=== PATIENT | male | born 1985 | race American Indian/Alaskan Native ===

== ENCOUNTER 2018-12-16 14:44 | Emergency (ER) | payer BC ==
[2018-12-16 15:02] VITALS: BP 139/84
--- NOTE | 2018-12-16 15:04 | Emergency Department Report ---
ED ENT HPI - General Chief complaint: Dental/Oral Stated complaint: TOOTHACHE/HEADACHE/VOMITING Time Seen by Provider: 12/16/18 14:58 Source: patient Mode of arrival: Ambulatory Limitations: No Limitations - History of Present Illness Initial comments: The patient is a33 year-old male who presents to ED complaining of 1 pain in the right side of his mouth Patient states that the pain started 5 days ago and has increased in severity over the last 2-3 days. The pain is exacerbated by eating and opening of the mouth. Patient states the pain is alleviated initially with pain medication but comes back. Patient states that it radiates towards ear. Patient describes a as a throbbing, pressure-like sensation. Patient states otherwise well and has no other complaints. Patient has had no fevers and no chills. No chest pain, no shortness of breath. No abdominal pain. No shortness of breath or recent trauma to the face. MD complaint: tooth pain Severity: moderate Severity scale (0 -10): 6 Quality: burning, aching Consistency: constant Worsens with: eating Associated Symptoms: toothache. denies: fever, cough, gum swelling, pain with swallowing, sore throat, tinnitus - Related Data Previous Rx's Medication Instructions Recorded Last Taken Type Clindamycin [Clindamycin CAP] 300 mg PO Q8H #21 cap 12/16/18 Unknown Rx Ibuprofen [Motrin] 800 mg PO Q8HR #30 tablet 12/16/18 Unknown Rx Allergies Allergy/AdvReac Type Severity Reaction Status Date / Time No Known Allergies Allergy Verified 12/16/18 14:46 ED Dental HPI - General Chief complaint: Dental/Oral Stated complaint: TOOTHACHE/HEADACHE/VOMITING Time Seen by Provider: 12/16/18 14:58 Source: patient Mode of arrival: Ambulatory Limitations: No Limitations - Related Data Previous Rx's Medication Instructions Recorded Last Taken Type Clindamycin [Clindamycin CAP] 300 mg PO Q8H #21 cap 12/16/18 Unknown Rx Ibuprofen [Motrin] 800 mg PO Q8HR #30 tablet 12/16/18 Unknown Rx Allergies Allergy/AdvReac Type Severity Reaction Status Date / Time No Known Allergies Allergy Verified 12/16/18 14:46 ED Review of Systems ROS: Stated complaint: TOOTHACHE/HEADACHE/VOMITING Other details as noted in HPI Comment: All other systems reviewed and negative ED Past Medical Hx - Medications Home Medications: Home Medications Medication Instructions Recorded Confirmed Last Taken Type Clindamycin [Clindamycin CAP] 300 mg PO Q8H #21 cap 12/16/18 Unknown Rx Ibuprofen [Motrin] 800 mg PO Q8HR #30 tablet 12/16/18 Unknown Rx ED Physical Exam - General Limitations: No Limitations General appearance: alert, in no apparent distress - Head Head exam: Present: atraumatic, normocephalic - Eye Eye exam: Present: normal appearance - ENT ENT exam: Present: mucous membranes moist - Neck Neck exam: Present: normal inspection - Respiratory Respiratory exam: Present: normal lung sounds bilaterally. Absent: respiratory distress - Cardiovascular Cardiovascular Exam: Present: regular rate, normal rhythm. Absent: systolic murmur, diastolic murmur, rubs, gallop - GI/Abdominal GI/Abdominal exam: Present: soft, normal bowel sounds - Rectal Rectal exam: Present: deferred - Extremities Exam Extremities exam: Present: normal inspection - Back Exam Back exam: Present: normal inspection - Neurological Exam Neurological exam: Present: alert, oriented X3 - Psychiatric Psychiatric exam: Present: normal affect, normal mood - Skin Skin exam: Present: warm, dry, intact, normal color. Absent: rash ED Course Vital Signs 12/16/18 14:58 Temperature 98.0 F Pulse Rate 62 Respiratory 16 Rate Blood Pressure 139/84 O2 Sat by Pulse 99 Oximetry ED Medical Decision Making - Medical Decision Making 33-year-old male who presents with odontogenic caries ED course: Pt has no evidence of acute impending airway compromise. At this point, patient will be discharged home on some antibiotics and pain trial, she will do well with an outpatient course of antibiotics. Follow up with the [facility] as referred Vital signs are normal patient is in no acute distress. Pt had an effect uneventful ED stay Critical care attestation.: If time is entered above; I have spent that time in minutes in the direct care of this critically ill patient, excluding procedure time. ED Disposition Clinical Impression: Dental caries, Pain due to dental caries Disposition: TO HOME OR SELFCARE Is pt being admited?: No Does the pt Need Aspirin: No Condition: Stable Instructions: Dental Caries (ED), Toothache (ED) Additional Instructions: follow up with dentist within 1 week take medication as prescribed return to ED if worsening symptoms Prescriptions: Clindamycin [Clindamycin CAP] 300 mg PO Q8H #21 cap Ibuprofen [Motrin] 800 mg PO Q8HR #30 tablet [facility] [Outside] - 3-5 Days [facility] [Outside] - 3-5 Days [facility] [Outside] - 3-5 Days Forms: Work/School Release Form(ED) Time of Disposition: 15:29
== END 2018-12-16 15:35 | disposition home or self-care (01) ==
LOC: ED 14:44
DX: R51 Headache (principal); R11.10 Vomiting, unspecified; K02.9 Dental caries, unspecified
CPT/HCPCS: 99282

== ENCOUNTER 2019-03-26 15:37 | Emergency (ER) | payer SELFPAY ==
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
[2019-03-26] MEDS ORDERED: ONDANSETRON 4 MG/2 ML INJ IV ONE (16:05)
[2019-03-26] MEDS ORDERED: SODIUM CHLORIDE 0.9% 1000 ML 1,000 ML IV ONE (16:05)
[2019-03-26] MEDS ORDERED: MORPHINE 4 MG/1 ML INJ IV ONE ×2 (16:05→16:38)
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
[2019-03-26] MEDS ORDERED: TETANUS,DIPH,PERTUSS(ACELL) VACCINE 0.5 ML SYRINGE IM ONE (16:58)
[2019-03-26] MEDS ORDERED: HYDROcodone/ACETAMINOPHEN 10-325MG TAB PO ONE (17:48)
[2019-03-26 18:07] VITALS: BP 125/99
== END 2019-03-26 18:06 | disposition home or self-care (01) ==
LOC: ED 15:37
DX: T22.20XA Burn of second degree of shoulder and upper limb, except wrist and hand, unspecified site, initial encounter (principal); T21.21XA Burn of second degree of chest wall, initial encounter; Z79.899 Other long term (current) drug therapy; X12.XXXA Contact with other hot fluids, initial encounter; Y93.89 Activity, other specified; Y92.89 Other specified places as the place of occurrence of the external cause; Y99.8 Other external cause status
CPT/HCPCS: 90471; 90715; 96361; 96374; 96375; 99281; J2270; J2405; J7030; 96376